=== PATIENT | female | born 1970 | race Caucasian/White ===

== ENCOUNTER 2016-08-14 14:56 | Inpatient (IN) | payer OTHER ==
--- NOTE | 2016-08-14 15:09 | PDOC ---
Rapid Medical Evaluation Chief Complaint: Wound Medical Evaluation: Allergies Allergy/AdvReac Type Severity Reaction Status Date / Time No Known Allergies Allergy Verified 03/06/14 19:09 08/14/16 15:04 I have performed a brief in-person evaluation of this patient. The patient presents with a chief complaint of: Pain/redness/swelling to L lower leg this am Pertinent physical exam findings: Stable and well kojo w/ localized erythema w/ increased warmth to anterior aspect of L lower leg, concerning for cellulitis I have ordered the following:cbc/chem/ua/upreg The patient will proceed to the ED for further evaluation. 08/14/16 15:06
[2016-08-14 15:11] VITALS: BMI 49.9
[2016-08-14 16:42] LABS: URINE APPEARANCE SLCLOUDY; URINE BILIRUBIN NEGATIVE (NEGATIVE); URINE COLOR DKYELLOW; URINE GLUCOSE (UA) NEGATIVE (NEGATIVE); URINE KETONE TRACE (NEGATIVE); URINE NITRITE NEGATIVE (NEGATIVE); URINE UROBILINOGEN NEGATIVE E.U./dl (0.2-1.0)
[2016-08-14 17:09] LABS: URINE BLOOD 1+ (NEGATIVE); URINE LEUK ESTERASE 2+ (NEGATIVE); URINE PROTEIN 1+ (NEGATIVE)
[2016-08-14 17:11] LABS: URINE BACTERIA MANY /hpf (NONE SEEN); URINE HYALINE CAST 1 /lpf; URINE MUCUS FEW; URINE RBC 2 /hpf (0-3); URINE WBC 41 /hpf (3-5)
--- NOTE | 2016-08-14 18:44 | PDOC ---
History of Present Illness - History of Present Illness Initial Comments: 08/14/16 18:54 Patient is a 46 year old female, denies any past significant medical hx, who is presenting to the ED with left lower extremity swelling, edema and pain. Patient is presenting with edema, redness, and pain to the area of her left leg from the ankle extending up to the left oconnell. The patient states she had an old wound to her left oconnell that she was treating with cream for some time until she ran out of medication and stopped treatment. Patient was seen in the ED two years ago, on 03/06/14 for left lower extremity wound complaint to the same area. Prior charts report that the patient's wound started out as a pimple which began scabbing over and having some lesion development. Today the patient was compelled to come to the ED because her pain worsened and she began experiencing a burning sensation. The patient is a poor historian and does not elaborate further. Denies any past medical hx, chronic medications, hospitalizations, surgical hx, allergies, or following up with a PCP. <Yamilet Padilla - Last Filed: 08/14/16 22:02> <Renu Vera - Last Filed: 08/15/16 17:17> - General Chief Complaint: Wound Stated Complaint: PAIN Time Seen by Provider: 08/14/16 15:09 Past History <Yamilet Padilla - Last Filed: 08/14/16 22:02> - Psycho/Social/Smoking Cessation Hx Anxiety: No Suicidal Ideation: No Smoking Status: No Smoking History: Never smoked Have you smoked in the past 12 months: No Number of Cigarettes Smoked Daily: 0 Information on smoking cessation initiated: No Hx Alcohol Use: No Drug/Substance Use Hx: No Substance Use Type: None <Renu Vera - Last Filed: 08/15/16 17:17> - Past Medical History Allergies/Adverse Reactions: Allergies Allergy/AdvReac Type Severity Reaction Status Date / Time No Known Allergies Allergy Verified 08/14/16 15:07 Home Medications: Ambulatory Orders NK [No Known Home Medication] 08/14/16 Review of Systems - Review of Systems Comments:: 08/14/16 18:59 CONSTITUTIONAL: Absent: fever, chills, diaphoresis, generalized weakness, malaise, loss of appetite HEENT: Absent: rhinorrhea, nasal congestion, throat pain, throat swelling, difficulty swallowing, mouth swelling, ear pain, eye pain, visual changes CARDIOVASCULAR: Absent: chest pain, syncope, palpitations, irregular heart rate, lightheadedness , peripheral edema RESPIRATORY: Absent: cough, shortness of breath, dyspnea with exertion, orthopnea, wheezing, stridor, hemoptysis GASTROINTESTINAL: Absent: abdominal pain, abdominal distension, nausea, vomiting, diarrhea, constipation, melena, hematochezia GENITOURINARY: Absent: dysuria, frequency, urgency, hesitancy, hematuria, flank pain, genital pain MUSCULOSKELETAL: Present: left lower extremity pain, swelling, redness, burning Absent: myalgia, arthralgia, joint swelling SKIN: Absent: rash, itching, pallor HEMATOLOGIC/IMMUNOLOGIC: Absent: easy bleeding, easy bruising, lymphadenopathy, frequent infections ENDOCRINE: Absent: unexplained weight gain, unexplained weight loss, heat intolerance, cold intolerance NEUROLOGIC: Absent: headache, focal weakness or paresthesia, dizziness, unsteady gait, seizure, mental status changes, bladder or bowel incontinence. PSYCHIATRIC: Absent: anxiety, depression, suicidal or homicidal ideation, hallucinations <Yamilet Padilla - Last Filed: 08/14/16 22:02> *Physical Exam - Vital Signs Last Vital Signs Temp Pulse Resp BP Pulse Ox 98.0 F 125 H 20 137/76 97 08/14/16 15:05 08/14/16 15:05 08/14/16 15:05 08/14/16 15:05 08/14/16 15:05 - Physical Exam Comments: 08/14/16 19:00 GENERAL: Obese. Awake and alert. No acute distress. HEENT: Normocephalic, atraumatic. PERRLA, EOMI. No conjunctival pallor. Sclera are non- icteric. Moist mucous membranes. Oropharynx is clear. NECK: Supple. Full ROM. No JVD. Carotid pulses 2+ and symmetric, without bruits. No thyromegaly. No lymphadenopathy. CARDIOVASCULAR: Regular rate and rhythm. No murmurs, rubs, or gallops. Distal pulses are 2+ and symmetric. PULMONARY: No evidence of respiratory distress. Lungs clear to auscultation bilaterally. No wheezing, rales or rhonchi. ABDOMINAL: Soft. Non-tender. Non-distended. No rebound or guarding. No organomegaly. Normoactive bowel sounds. MUSCULOSKELETAL: Normal range of motion at all joints. No bony deformities or tenderness. No CVA tenderness. EXTREMITIES: Grossly edematous, erythematous and cellulitic left lower extremity extended from the left ankle to the left oconnell. Good pulses. No cyanosis. No clubbing. SKIN: Warm and dry. Normal capillary refill. No rashes. No jaundice. NEUROLOGICAL: Alert, awake, poor historian. Cranial nerves 2-12 intact. Normal speech. Gait is normal without ataxia. PSYCHIATRIC: Cooperative. Good eye contact. Appropriate mood and affect. <Yamilet Padilla - Last Filed: 08/14/16 22:02> - Vital Signs Last Vital Signs Temp Pulse Resp BP Pulse Ox 98.0 F 125 H 20 137/76 97 08/14/16 15:05 08/14/16 15:05 08/14/16 15:05 08/14/16 15:05 08/14/16 15:05 <Renu Vera - Last Filed: 08/15/16 17:17> ED Treatment Course - LABORATORY CBC & Chemistry Diagram: 08/14/16 19:05 08/14/16 19:05 - ADDITIONAL ORDERS Additional order review: Laboratory Results 08/14/16 15:23 Urine Color Dkyellow Urine Appearance Slcloudy Urine pH 5.0 Urine Protein 1+ H Urine Glucose (UA) Negative Urine Ketones Trace H Urine Blood 1+ H Urine Nitrite Negative Urine Bilirubin Negative Urine Urobilinogen Negative Ur Leukocyte Esterase 2+ H Urine RBC 2 Urine WBC 41 Ur Epithelial Cells Few Urine Bacteria Many Hyaline Casts 1 Urine Mucus Few Urine HCG, Qual Negative - RADIOLOGY Radiograph Interpretation: 08/14/16 20:36 Vascular Study Impression: There is no evidence of deep venous thrombosis in the left lower extremity. Reported By: Vivian Quintana MD 08/14/16 22:02 Chest X-Ray Impression: Minimal atelectatic changes in the right lung base, medially without gross evidence of infiltrates. Reported By: Vivian Quintnaa MD <Yamilet Padilla - Last Filed: 08/14/16 22:02> - LABORATORY CBC & Chemistry Diagram: 08/14/16 19:05 08/14/16 19:05 - ADDITIONAL ORDERS Additional order review: Laboratory Results 08/14/16 15:23 Urine Color Dkyellow Urine Appearance Slcloudy Urine pH 5.0 Urine Protein 1+ H Urine Glucose (UA) Negative Urine Ketones Trace H Urine Blood 1+ H Urine Nitrite Negative Urine Bilirubin Negative Urine Urobilinogen Negative Ur Leukocyte Esterase 2+ H Urine RBC 2 Urine WBC 41 Ur Epithelial Cells Few Urine Bacteria Many Hyaline Casts 1 Urine Mucus Few Urine HCG, Qual Negative <Renu Vera - Last Filed: 08/15/16 17:17> Medical Decision Making - Medical Decision Making 08/15/16 17:09 46 yo female presented with lower left leg swelling,erythema that she said was there for only 1 day -duplex doppler of L leg NEGATIVE for dvt -pt denies any significant PMH -review of labs also reveals UTI -pt started on antibiotics and admitted to DR Chavez who was taking service call as the pt has no regular physician -initially pt was concerned about being admitted because she has a young son with significant cognitive deficits and also has seizures. She made arrangements to have her sister work it out <Renu Vera - Last Filed: 08/15/16 17:17> *DC/Admit/Observation/Transfer - Attestations Scribe Attestion: 08/14/16 19:01 Documentation prepared by Yamilet Padilla, acting as medical advisor for Renu Vera MD. <Yamilet Padilla - Last Filed: 08/14/16 22:02> - Discharge Dispostion Admit: Yes <Renu Vera - Last Filed: 08/15/16 17:17> Diagnosis at time of Disposition: Wound cellulitis
[2016-08-14] MEDS ORDERED: CLINDAMYCIN 600MG PREMIX IVPB 50 ML IVPB ONE ×2 (18:45→18:54)
[2016-08-14 19:17] LABS: MCH 24.4 pg (25.7-33.7); MCHC 31.6 g/dl (32.0-36.0); MEAN CELL VOLUME 77.2 fl (80-96); MEAN PLT VOLUME 9.3 fl (7.5-11.1); PLATELET COUNT 198 K/MM3 (134-434); RDW 16.1 % (11.6-15.6); WHITE BLOOD COUNT 15.3 K/mm3 (4.0-10.0)
[2016-08-14 20:04] LABS: ALBUMIN 3.6 g/dl (3.4-5.0); ANION GAP 10 (8-16); CO2 24 mmol/L (21-32); CREATININE 0.8 mg/dL (0.55-1.02); GLUCOSE,RANDOM 144 mg/dL (74-106); SGOT/AST 22 U/L (15-37); SGPT/ALT 22 U/L (12-78)
[2016-08-14 20:06] LABS: ALK PHOS 110 U/L (45-117); BILIRUBIN,TOTAL 1.2 mg/dL (0.2-1.0); TOT PROT 8.8 g/dl (6.4-8.2)
[2016-08-15] MEDS ORDERED: CEFTRIAXONE 50 ML IVPB STA (02:05)
[2016-08-15] MEDS ORDERED: CEFTRIAXONE 50 ML ONE (02:23)
[2016-08-15] MEDS ORDERED: ACETAMINOPHEN 325 MG TABLET (FP) PO PRN ×2 (03:40→12:35)
[2016-08-15] MEDS ORDERED: VANCOMYCIN 1 GRAM (PRE-DOCKED) 1,000 MG/250 ML BAG IVPB ONE (12:45)
[2016-08-15] MEDS ORDERED: VANCOMYCIN 1 GRAM (PRE-DOCKED) 1,000 MG/250 ML BAG IVPB SCH (12:45)
[2016-08-15] MEDS ORDERED: CLINDAMYCIN IVPB 300 MG in DEXTROSE 5%-WATER - 48 ML IVPB SCH ×3 (12:45→21:00)
--- NOTE | 2016-08-15 12:45 | HP ---
Admitting History and Physical - Admission History of Present Illness: Pt is a 46 y/o female who denies any past significant medical. Pt presented to the ER with left lower extremity swelling and pain. Patient is presenting with edema, redness, and pain to the area of her left leg from the ankle extending up to the left oconnell for 1-2 days.. The patient states she had an old wound to her left oconnell that she was treating with cream for some time until she ran out of medication and stopped treatment. Pt denies any fever or chills History Source: Patient, Medical Record - Past Surgical History Past Surgical History: Yes: None - Smoking History Smoking history: Never smoked Have you smoked in the past 12 months: No Aproximately how many cigarettes per day: 0 - Alcohol/Substance Use Hx Alcohol Use: No Home Medications - Allergies Allergies/Adverse Reactions: Allergies Allergy/AdvReac Type Severity Reaction Status Date / Time No Known Allergies Allergy Verified 08/14/16 15:07 - Home Medications Home Medications: Ambulatory Orders NK [No Known Home Medication] 08/14/16 Family Disease History - Family Disease History Family History: Unremarkable Review of Systems - Review of Systems Constitutional: reports: No Symptoms Eyes: reports: No Symptoms HENT: reports: No Symptoms Neck: reports: No Symptoms Cardiovascular: reports: No Symptoms Respiratory: reports: No Symptoms Gastrointestinal: reports: No Symptoms Genitourinary: reports: No Symptoms Physical Examination Vital Signs: Vital Signs Temperature 99 F 08/15/16 10:00 Pulse Rate 93 H 08/15/16 10:00 Respiratory Rate 20 08/15/16 10:00 Blood Pressure 133/76 08/15/16 10:00 O2 Sat by Pulse Oximetry (%) 98 08/15/16 09:00 Constitutional: Yes: Well Nourished Eyes: Yes: WNL HENT: Yes: WNL Neck: Yes: WNL, Supple Cardiovascular: Yes: WNL, Regular Rate and Rhythm Respiratory: Yes: WNL, Regular, CTA Bilaterally Gastrointestinal: Yes: WNL, Normal Bowel Sounds, Soft, Abdomen, Obese Extremities: Yes: Other ((+) edema/erythema/warmth of Lt ankle to lt calf) Problem List - Problems (1) Cellulitis Assessment/Plan: Cont IV atnibxs ID consult Code(s): L03.90 - CELLULITIS, UNSPECIFIED (2) Morbid obesity Code(s): E66.01 - MORBID (SEVERE) OBESITY DUE TO EXCESS CALORIES
--- NOTE | 2016-08-15 14:39 | EKG ---
Test Reason : Blood Pressure : / mmHG Vent. Rate : 101 BPM Atrial Rate : 101 BPM P-R Int : 128 ms QRS Dur : 092 ms QT Int : 330 ms P-R-T Axes : 020 -05 041 degrees QTc Int : 427 ms SINUS TACHYCARDIA OTHERWISE NORMAL ECG WHEN COMPARED WITH ECG OF 10-OCT-2007 23:14, NO SIGNIFICANT CHANGE WAS FOUND Confirmed by NATAN PENA MD ([id number]) on 08/15/2016 2:39:06 PM Referred By: Confirmed By:NATAN PENA MD
--- NOTE | 2016-08-15 20:37 | CONSULT ---
Consult Consult Specialty:: infectious diseases Reason for Consultation:: cellulitits of the left leg - History of Present Illness Chief Complaint: swelling and pain of the left leg History of Present Illness: 46 y/o female who denies any past significant medical. admitted with left lower extremity swelling and pain. s.. The patient states she had an old wound to her left oconnell that she was treating with cream for some time until she ran out of medication and stopped treatment. Pt denies any fever or chills now she says the pain and redness ahs increased patient is slightly slow but is able to tell many things currently she says she is feeling better patient got a dose of vanco and zosyn - History Source History Provided By: Patient, Medical Record Limitations to Obtaining History: Poor Historian - Past Medical History ...LMP: 01/26/17 ...LMP Comment: Has not had MC for 5-6 months ...: No - Alcohol/Substance Use Hx Alcohol Use: No - Smoking History Smoking history: Never smoked Have you smoked in the past 12 months: No Aproximately how many cigarettes per day: 0 Home Medications - Allergies Allergies/Adverse Reactions: Allergies Allergy/AdvReac Type Severity Reaction Status Date / Time No Known Allergies Allergy Verified 08/14/16 15:07 - Home Medications Home Medications: Ambulatory Orders Clindamycin [Cleocin -] 300 mg PO Q6HPO #28 capsule 08/17/16 Review of Systems - Review of Systems Constitutional: reports: No Symptoms Eyes: reports: No Symptoms HENT: reports: No Symptoms Neck: reports: No Symptoms Cardiovascular: reports: No Symptoms Respiratory: reports: No Symptoms Gastrointestinal: reports: No Symptoms Genitourinary: reports: No Symptoms Musculoskeletal: reports: Muscle Pain Neurological: reports: No Symptoms Hematology/Lymphatic: reports: No Symptoms Psychiatric: reports: No Symptoms Physical Exam Vital Signs: Vital Signs Temperature 98.5 F 08/15/16 17:19 Pulse Rate 101 H 08/15/16 17:19 Respiratory Rate 20 08/15/16 17:19 Blood Pressure 149/82 08/15/16 17:19 O2 Sat by Pulse Oximetry (%) 98 08/15/16 17:19 Constitutional: Yes: Obese Eyes: Yes: Conjunctiva Clear Cardiovascular: Yes: Regular Rate and Rhythm Respiratory: Yes: Regular, CTA Bilaterally Gastrointestinal: Yes: Normal Bowel Sounds, Soft Musculoskeletal: Yes: Other Extremities: Yes: Other (left ankle swelling extending about a inch to two above the ankle) Neurological: Yes: Alert, Oriented Psychiatric: Yes: Alert Imaging - Results Chest X-ray: Report Reviewed, Image Reviewed Assessment/Plan Problem List - Problems (1) Cellulitis Assessment/Plan: Cont IV atnibxs ID consult Code(s): L03.90 - CELLULITIS, UNSPECIFIED (2) Morbid obesity Code(s): E66.01 - MORBID (SEVERE) OBESITY DUE TO EXCESS CALORIES plan will order a ct scan of the leg continue abx elevation of the legs rest as per primary
[2016-08-15] MEDS: HEPARIN NA (PORCINE) 5,000 UNITS/ML 1ML VIAL SQ SCH (22:25)
[2016-08-16] MEDS: PIPERACILLIN/TAZOB 3.375 GM 50 ML IVPB SCH ×3 (01:40→18:04)
[2016-08-16 07:37] LABS: BASOPHIL 0.8 % (0-2.0); EOSINOPHIL 1.1 % (0-4.5); MCH 25.5 pg (25.7-33.7); MCHC 32.9 g/dl (32.0-36.0); MEAN CELL VOLUME 77.4 fl (80-96); MEAN PLT VOLUME 9.1 fl (7.5-11.1); NEUTROPHILS 64.4 % (42.8-82.8); PLATELET COUNT 163 K/MM3 (134-434); RDW 16.1 % (11.6-15.6); WHITE BLOOD COUNT 6.3 K/mm3 (4.0-10.0)
[2016-08-16 08:29] LABS: ALBUMIN 3.2 g/dl (3.4-5.0); ALK PHOS 88 U/L (45-117); ANION GAP 9 (8-16); BILIRUBIN,TOTAL 0.7 mg/dL (0.2-1.0); CALCIUM 9.2 mg/dL (8.5-10.1); CO2 27 mmol/L (21-32); CREATININE 0.6 mg/dL (0.55-1.02); GLUCOSE,RANDOM 107 mg/dL (74-106); SGOT/AST 21 U/L (15-37); SGPT/ALT 20 U/L (12-78); TOT PROT 7.6 g/dl (6.4-8.2)
[2016-08-16] MEDS: HEPARIN NA (PORCINE) 5,000 UNITS/ML 1ML VIAL SQ SCH ×2 (10:03→21:14)
[2016-08-16] MEDS: VANCOMYCIN 1,250 MG in DEXTROSE 5%-WATER - 250 ML IVPB SCH (10:56)
--- NOTE | 2016-08-16 17:27 | PN ---
Progress Note, Physician History of Present Illness: leg has improved a lot patient doing well - Current Medication List Current Medications: Active Medications Acetaminophen (Tylenol -) 650 mg PO Q4H PRN PRN Reason: FEVER OR PAIN Heparin Sodium (Porcine) (Heparin -) 5,000 unit SQ BID CADEN Last Admin: 08/16/16 10:03 Dose: 5,000 unit Vancomycin HCl 1,250 mg/ (Dextrose) 250 mls @ 166.667 mls/hr IVPB DAILY CADEN PRN Reason: Protocol Last Admin: 08/16/16 10:56 Dose: 166.667 mls/hr Piperacillin Sod/Tazobactam Sod (Zosyn 3.375gm Ivpb (Pre-Docked)) 50 mls @ 100 mls/hr IVPB Q8H-IV CADEN PRN Reason: Protocol Last Admin: 08/16/16 09:48 Dose: 100 mls/hr - Objective Vital Signs: Vital Signs Temperature 97.4 F L 08/16/16 14:38 Pulse Rate 82 08/16/16 14:38 Respiratory Rate 20 08/16/16 14:38 Blood Pressure 117/73 08/16/16 14:38 O2 Sat by Pulse Oximetry (%) 100 08/16/16 09:00 Constitutional: Yes: No Distress, Calm Cardiovascular: Yes: Regular Rate and Rhythm Respiratory: Yes: Regular, CTA Bilaterally Gastrointestinal: Yes: Normal Bowel Sounds, Soft Musculoskeletal: Yes: Other Extremities: Yes: Other Neurological: Yes: Alert, Oriented Labs: CBC, BMP 08/16/16 06:30 08/16/16 06:30 - ....Imaging Cat Scan: Report Reviewed, Image Reviewed Assessment/Plan Problem List - Problems (1) Cellulitis Assessment/Plan: Cont IV atnibxs ID consult Code(s): L03.90 - CELLULITIS, UNSPECIFIED (2) Morbid obesity Code(s): E66.01 - MORBID (SEVERE) OBESITY DUE TO EXCESS CALORIES plan ct scan noted continue abx elevation of the legs rest as per primary
--- NOTE | 2016-08-16 23:10 | PN ---
Progress Note, Physician History of Present Illness: No new complaints - Current Medication List Current Medications: Active Medications Acetaminophen (Tylenol -) 650 mg PO Q4H PRN PRN Reason: FEVER OR PAIN Heparin Sodium (Porcine) (Heparin -) 5,000 unit SQ BID CADEN Last Admin: 08/16/16 21:14 Dose: 5,000 unit Vancomycin HCl 1,250 mg/ (Dextrose) 250 mls @ 166.667 mls/hr IVPB DAILY CADEN PRN Reason: Protocol Last Admin: 08/16/16 10:56 Dose: 166.667 mls/hr Piperacillin Sod/Tazobactam Sod (Zosyn 3.375gm Ivpb (Pre-Docked)) 50 mls @ 100 mls/hr IVPB Q8H-IV CADEN PRN Reason: Protocol Last Admin: 08/16/16 18:04 Dose: 100 mls/hr - Objective Vital Signs: Vital Signs Temperature 97.4 F L 08/16/16 19:38 Pulse Rate 82 08/16/16 19:38 Respiratory Rate 20 08/16/16 19:38 Blood Pressure 121/91 08/16/16 19:38 O2 Sat by Pulse Oximetry (%) 100 08/16/16 09:00 Constitutional: Yes: Well Nourished Eyes: Yes: WNL HENT: Yes: WNL Neck: Yes: WNL, Supple Cardiovascular: Yes: WNL, Regular Rate and Rhythm Respiratory: Yes: WNL, Regular, CTA Bilaterally Gastrointestinal: Yes: WNL, Normal Bowel Sounds, Soft, Abdomen, Obese Extremities: Yes: Other (Increased warmth LLE (+) erythema LLE) Labs: CBC, BMP 08/16/16 06:30 08/16/16 06:30 Problem List - Problems (1) Cellulitis Assessment/Plan: Cont IV vanco/zosyn Will probably change to po antibxs in am w/ dc planning Code(s): L03.90 - CELLULITIS, UNSPECIFIED (2) Morbid obesity Code(s): E66.01 - MORBID (SEVERE) OBESITY DUE TO EXCESS CALORIES
[2016-08-17] MEDS: PIPERACILLIN/TAZOB 3.375 GM 50 ML IVPB SCH ×2 (01:37→11:03)
[2016-08-17] MEDS: HEPARIN NA (PORCINE) 5,000 UNITS/ML 1ML VIAL SQ SCH (09:42)
[2016-08-17] MEDS: VANCOMYCIN 1,250 MG in DEXTROSE 5%-WATER - 250 ML IVPB SCH (09:42)
[2016-08-17 12:18] VITALS: BP 124/55; PULSE 84; TEMP 97.6
== END 2016-08-17 14:42 | disposition home or self-care (01) | DRG 603 ==
LOC: JER 14:56 → JERBED 21:34 → J5S 08-15 19:14
PROVIDERS: ADMIT Internal Medicine; ATTEND Internal Medicine
DX: L03.116 Cellulitis of left lower limb (principal); Z68.42 Body mass index [BMI] 45.0-49.9, adult; E66.01 Morbid (severe) obesity due to excess calories
CPT/HCPCS: 36415; 71020-TC; 73700-TC-RT; 80053; 81003; 81015; 84703; 85025; 93005; 93010; 93971-TC; 99284-25; J1644